=== PATIENT | female | born 1980 | race African-American/Black ===

== ENCOUNTER 2016-07-14 01:11 | Emergency (ER) | payer OTHER ==
[2016-07-14 01:36] LABS: URINE BILIRUBIN SMALL (NEG); URINE BLOOD MODERATE (NEG); URINE GLUCOSE (UA) NEGATIVE (NEG); URINE KETONE LARGE (NEG); URINE LEUKOCYTE ESTERASE NEGATIVE (NEG); URINE NITRITE NEGATIVE (NEG); URINE PROTEIN MODERATE (NEG); URINE SPECIFIC GRAVITY 1.025 (1.003-1.030)
[2016-07-14 01:47] LABS: URINE APPEARANCE HAZY; URINE COLOR YELLOW
[2016-07-14 01:48] LABS: URINE BACTERIA 2+; URINE WBC RARE /[HPF] (0-5)
[2016-07-14 02:25] LABS: URINE OTHER VOLUME 1 ML
[2016-07-14] MEDS ORDERED: ZOFRAN4 M2 PO (02:52)
[2016-07-14] MEDS ORDERED: CIPRO500 M2 PO (02:52)
== END 2016-07-14 02:58 ==
LOC: EDMED 01:11
PROVIDERS: Emergency Medicine
DX: N12 Tubulo-interstitial nephritis, not specified as acute or chronic (principal); Z88.0 Allergy status to penicillin